=== PATIENT | female | born 1985 | race Caucasian/White ===

== ENCOUNTER 2017-11-14 13:50 | Emergency (ER) | payer OTHER ==
[~2017-11-14 13:50] MED LIST: BUPR1SUB6 SL; LORTA5 PO; QUET25 TUBE; SHOWER/TUB CHAIR SM
[2017-11-14 13:52] VITALS: BP 127/66; PULSE 84; RESP 16; TEMP 98.9; O2SAT 100
[2017-11-14] MEDS ORDERED: PENI500T PO (15:44)
[2017-11-14] MEDS ORDERED: IBUP1TAB7 PO (15:44)
[2017-11-14] MEDS ORDERED: ACETAMINOPHEN/HYDROcodone 325 MG/5 MG TAB PO ONE (15:45)
--- NOTE | 2017-11-14 15:48 | PD ---
HPI Chief Complaint: Oral / Dental Pain or Problem Time Seen by Provider: 15:18 Travel History International Travel<30 days: No Contact w/Intl Traveler<30days: No Traveled to known affect area: No History of Present Illness HPI 32-year-old female presents to the ED for evaluation of 4 day history of left lower dental pain with facial swelling. Patient states the pain is rated 10 out of 10, radiates to the left ear. Exacerbated by contact with cold. She denies fever, chills, nausea, vomiting, difficulties swallowing her own secretions. She endorses cavity in the affected tooth. She does not currently have a dentist. PFSH Past Medical History Arthritis: No Asthma: No Anxiety: Yes Depression: Yes Heart Rhythm Problems: No Cancer: No Cardiovascular Problems: Yes High Cholesterol: No Chest Pain: No Congestive Heart Failure: No COPD: No Cerebrovascular Accident: No Diabetes: No Endocrine: No GERD: No Genitourinary: No Hiatal Hernia: No Kidney Stones: No Musculoskeletal: No Neurologic: Yes (AUDITORY PROCESS DISORDER) Psychiatric: Yes Reproductive: No Respiratory: No Migraines: No Renal Failure: No Seizures: No Sleep Apnea: No Thyroid Disease: No Ulcer: No ?: Not Social History Tobacco Use: Yes Substance Use: Yes (SUBOXONE) Allergies-Medications (Allergen,Severity, Reaction): Coded Allergies: Unable to Assess (Unverified Allergy, Unknown, 05/24/17) GCS 3 No Known Allergies (Unverified , 03/25/16) Reported Meds & Prescriptions Reported Meds & Active Scripts Active Ibuprofen 800 Mg Tab 800 Mg PO Q8H PRN Penicillin V Potassium 500 Mg Tab 500 Mg PO Q6H 7 Days Reported Suboxone Sublingual Film (Buprenorphine-Naloxone Sublingual Film) 8-2 Mg Film 8 Film SL BID Unique ID number required: Review of Systems Except as stated in HPI: all other systems reviewed are Neg Physical Exam Narrative GENERAL: Well-nourished, well-developed white female in no acute distress. SKIN: Warm and dry. HEAD: Normocephalic. Atraumatic. EYES: No scleral icterus. No injection or drainage. PERRLA. EOMI. ENT: Pearly anderson tympanic membranes bilaterally. Nasal mucosa is moist. Oropharynx without erythema, edema or exudate. NECK: Supple, trachea midline. Positive left-sided anterior cervical lymphadenopathy. DENTAL: Fair dentition overall. A few dental caries noted. Tooth #21 is eroded to the gumline. There is a large dental caries. The surrounding mucosa is erythematous, edematous and tender. No drainable abscess noted. CARDIOVASCULAR: Regular rate and rhythm without murmurs, gallops, or rubs. No carotid bruits. 2+ DP and radial pulses bilaterally. RESPIRATORY: Breath sounds clear and equal bilaterally. No accessory muscle use. GASTROINTESTINAL: Abdomen soft, non-tender, nondistended. + Bowel sounds MUSCULOSKELETAL: No cyanosis, or edema. BACK: Nontender without obvious deformity. No CVA tenderness. Data Data Last Documented VS Vital Signs Date Time Temp Pulse Resp B/P (MAP) Pulse Ox O2 Delivery O2 Flow Rate FiO2 11/14/17 13:52 98.9 84 16 127/66 (86) 100 Orders Orders Acetamin-Hydrocod 325-5 Mg ([place] 5-325 (11/14/17 15:45) Ed Discharge Order (11/14/17 16:03) Ibuprofen (Motrin) (11/14/17 16:15) [facility] Medical Decision Making Medical Screen Exam Complete: Yes Emergency Medical Condition: Yes Differential Diagnosis Dental fracture versus dental abscess versus dental caries versus anxiety versus other Narrative Course 32-year-old female presents to the ED for evaluation of 4 day history of left lower dental pain with facial swelling. Patient states the pain is rated 10 out of 10, radiates to the left ear. Exacerbated by contact with cold. She denies fever, chills, nausea, vomiting, difficulties swallowing her own secretions. She endorses cavity in the affected tooth. Patient afebrile on presentation. Physical exam reveals 221 is related to the gumline, Susan caries with surrounding mucosa erythematous, edematous, tender. No drainable abscess noted. Exams otherwise unremarkable. I offered the patient on [place] which she declined. She is administered another milligram ibuprofen here. She is prescribed penicillin V 4 times a day 7 days, short course of anti- inflammatory medications. She is instructed to follow-up with a dentist and provided with outpatient community resources. She is stable and discharged home. Diagnosis Primary Impression: Dental caries Additional Impression: Dental abscess Referrals: Dentist Patient Instructions: Dental Abscess (ED), Dental Caries (ED), General Instructions Additional Instructions: Rest, hydrate. Begin taking the antibiotics today and take them until every pill is gone. Warm salt water gargles may help to improve your pain. Take ibuprofen every 8 hours as prescribed. Follow-up with the dentist as discussed. Return to the ED for worsening symptoms or any urgent or emergent medical condition. Med/Other Pt SpecificInfo: Prescription(s) given Scripts Ibuprofen (Ibuprofen) 800 Mg Tab 800 MG PO Q8H Y for Pain/Inflammation, #15 TAB 0 Refills Prov: Nya Ragsdale MD 11/14/17 Penicillin V Potassium (Penicillin V Potassium) 500 Mg Tab 500 MG PO Q6H for Infection for 7 Days, #28 TAB 0 Refills Prov: Nya Ragsdale MD 11/14/17 Disposition: 01 DISCHARGE HOME Condition: Stable Lana Connor Nov 14, 2017 15:48
[2017-11-14] MEDS ORDERED: SUBO8MIS SL (16:06)
[2017-11-14] MEDS ORDERED: IBUPROFEN 800 MG TAB PO ONE (16:15)
== END 2017-11-14 16:16 | disposition home or self-care (01) ==
LOC: NEPK 13:50
DX: K02.9 Dental caries, unspecified (principal); K04.7 Periapical abscess without sinus; Z72.0 Tobacco use
CPT/HCPCS: 99283

== ENCOUNTER 2017-12-02 12:52 | Emergency (ER) | payer SELFPAY ==
[~2017-12-02] VITALS: Ht 175.3 cm; Wt 70.0 kg
[~2017-12-02 12:52] MED LIST changes: -BUPR1SUB6 SL; +IBUP1TAB7 PO; -LORTA5 PO; +PENI500T PO; -QUET25 TUBE; -SHOWER/TUB CHAIR SM; +SUBO8MIS SL
[2017-12-02 12:53] VITALS: BP 122/62; PULSE 72; RESP 14; TEMP 98.2; O2SAT 100
== END 2017-12-02 17:38 | disposition left against medical advice (07) ==
LOC: NED 12:52
DX: K08.89 Other specified disorders of teeth and supporting structures (principal); Z53.21 Procedure and treatment not carried out due to patient leaving prior to being seen by health care provider
CPT/HCPCS: 99281

== ENCOUNTER 2017-12-27 07:15 | Emergency (ER) | payer OTHER, MEDICAID ==
[2017-12-27 07:21] VITALS: BP 130/65; PULSE 80; RESP 16; TEMP 97.7; O2SAT 100
--- NOTE | 2017-12-27 07:56 | PD ---
HPI Chief Complaint: Oral / Dental Pain or Problem Time Seen by Provider: 07:56 Travel History International Travel<30 days: No Contact w/Intl Traveler<30days: No Traveled to known affect area: No History of Present Illness HPI 32-year-old female presents emergency department with recurrent dental infection to the left upper jaw. She states it swelled up last night but she states she had some spontaneous drainage of some yellowish green drainage with reduce swelling this morning. She denies fever, chills, or other symptoms. She is currently saving up for dental help. She states she has pain , but more sensitivity with cold. She has no known drug allergies. PFSH Past Medical History Arthritis: No Asthma: No Anxiety: Yes Depression: Yes Heart Rhythm Problems: No Cancer: No Cardiovascular Problems: Yes High Cholesterol: No Chest Pain: No Congestive Heart Failure: No COPD: No Cerebrovascular Accident: No Diabetes: No Endocrine: No Gastrointestinal Disorders: No GERD: No Genitourinary: No Headaches: No Hiatal Hernia: No Hypertension: No Implanted Vascular Access Dvce: No Kidney Stones: No Musculoskeletal: No Neurologic: Yes (AUDITORY PROCESS DISORDER) Psychiatric: Yes Reproductive: No Respiratory: No Migraines: No Renal Failure: No Seizures: No Sleep Apnea: No Thyroid Disease: No Ulcer: No Tetanus Vaccination: < 5 Years ?: Not Past Surgical History Other Surgery: Yes (brain) Social History Alcohol Use: No Tobacco Use: Yes Substance Use: Yes (SUBOXONE) Allergies-Medications (Allergen,Severity, Reaction): Coded Allergies: No Known Allergies (Verified Adverse Reaction, Unknown, 12/27/17) Reported Meds & Prescriptions Reported Meds & Active Scripts Active Magic Mouthwash Adult Liq (Multi-Ingredient Mouthwash/Gargle) 120 Ml Susp 10 Ml SWISH-SPIT ACHS Each 5mL contains: Nystatin 200,000units, Diphenhydramine 4.25mg, Viscous Lidocaine 10mg, Malik syrup 0.8 mL Ibuprofen 800 Mg Tab 800 Mg PO Q8H PRN Penicillin V Potassium 500 Mg Tab 500 Mg PO Q6H 10 Days Ibuprofen 800 Mg Tab 800 Mg PO Q8H PRN Penicillin V Potassium 500 Mg Tab 500 Mg PO Q6H 7 Days Reported Suboxone Sublingual Film (Buprenorphine-Naloxone Sublingual Film) 8-2 Mg Film 8 Film SL BID Unique ID number required: Review of Systems Except as stated in HPI: all other systems reviewed are Neg General / Constitutional: No: Fever Eyes: No: Visual changes HENT: Positive: Dental Difficulties, No: Headaches, Vertigo, Lightheadedness, Sore Throat, Rhinitis, Rhinorrhea, Congestion, Nosebleed, Neck Stiffness, Neck Pain, Gingival Bleeding, Earache Cardiovascular: No: Chest Pain or Discomfort Respiratory: No: Shortness of Breath Gastrointestinal: No: Abdominal Pain Genitourinary: No: Dysuria Musculoskeletal: No: Pain Skin: No Rash Neurologic: No: Weakness Psychiatric: No: Depression Endocrine: No: Polydipsia Hematologic/Lymphatic: No: Easy Bruising Physical Exam Narrative GENERAL: Patient appears in no obvious distress SKIN: Warm and dry. Normal color. Normal turgor. HEAD: Atraumatic. Normocephalic. Mild swelling over the left upper jaw. EYES: Pupils equal and round. No scleral icterus. No injection or drainage. ENT: No nasal bleeding or discharge. Mucous membranes pink and moist. Patient is obvious cavities to the #13 and 14 teeth. There is no significant swelling of the gingiva at this time. Pharynx is clear. Airways patent. Mild sinus tenderness on the left. NECK: Trachea midline. Supple and nontender CARDIOVASCULAR: Regular rate and rhythm. RESPIRATORY: No accessory muscle use. Clear to auscultation. Breath sounds equal bilaterally. MUSCULOSKELETAL: Extremities without clubbing, cyanosis, or edema. No obvious deformities. NEUROLOGICAL: Awake and alert. No obvious cranial nerve deficits. Motor grossly within normal limits. Five out of 5 muscle strength in the arms and legs. Normal speech. PSYCHIATRIC: Appropriate mood and affect; insight and judgment normal. Data Data Last Documented VS Vital Signs Date Time Temp Pulse Resp B/P (MAP) Pulse Ox O2 Delivery O2 Flow Rate FiO2 12/27/17 07:21 97.7 80 16 130/65 (86) 100 MDM Medical Decision Making Medical Screen Exam Complete: Yes Emergency Medical Condition: Yes Medical Record Reviewed: Yes Differential Diagnosis Dental caries. Dental pain. Dental abscess. Narrative Course Patient is treated with Pen-Vee K 500 mg 4 times daily 10 days. Patient given ibuprofen 800 mg 3 times daily as needed pain #60. Patient is given Magic mouthwash as directed every 2 hours #120 mL's with 2 refills. Patient to follow-up with dental resources as soon as possible or return here with worsening symptoms as needed. Diagnosis Primary Impression: Dental abscess Referrals: Dentist Patient Instructions: Dental Abscess (ED), Dental Caries (DC), General Instructions Additional Instructions: Patient is treated with Pen-Vee K 500 mg 4 times daily 10 days. Patient given ibuprofen 800 mg 3 times daily as needed pain #60. Patient is given Magic mouthwash as directed every 2 hours #120 mL's with 2 refills. Patient to follow-up with dental resources as soon as possible or return here with worsening symptoms as needed. Med/Other Pt SpecificInfo: Prescription(s) given Scripts [id number]-Rlcuvwvoovaclfg-Dpgzatlxy Liq (Magic Mouthwash Adult Liq) 120 Ml Susp 10 ML SWISH-SPIT Q2HR for Mouth sores, #120 ML 2 Refills Each 5mL contains: Nystatin 200,000units, Diphenhydramine 4.25mg, Viscous Lidocaine 10mg, Malik syrup 0.8 mL Prov: Parvez Leslie 12/27/17 Ibuprofen (Ibuprofen) 800 Mg Tab 800 MG PO Q8H Y for Pain/Inflammation, #60 TAB 0 Refills Prov: Chun Linton MD 12/27/17 Penicillin V Potassium (Penicillin V Potassium) 500 Mg Tab 500 MG PO Q6H for Infection for 10 Days, #40 TAB 0 Refills Prov: Chun Linton MD 12/27/17 Disposition: 01 DISCHARGE HOME Condition: Stable Parvez Leslie Dec 27, 2017 07:56
[2017-12-27] MEDS ORDERED: MAGICADU2 SWISH-SPIT ×2 (08:00→08:06)
[2017-12-27] MEDS ORDERED: PENI500T PO (08:00)
[2017-12-27] MEDS ORDERED: IBUP1TAB7 PO (08:00)
== END 2017-12-27 08:16 | disposition home or self-care (01) ==
LOC: NEPD 07:15
DX: K04.7 Periapical abscess without sinus (principal); Z72.0 Tobacco use
CPT/HCPCS: 99283